=== PATIENT | male | born 1955 | race Caucasian/White ===

== ENCOUNTER 2017-08-04 15:36 | Day surgery (SDC) | payer OTHER ==
[~2017-08-04] VITALS: Ht 180.3 cm; Wt 101.7 kg
[~2017-08-04 15:36] MED LIST: CELEBREX100 MG PO; HYDROCHLOROTHIA25 MG PO; METFORMIN HCL500 MG PO
[2017-08-04 16:04] VITALS: BP 135/83
[2017-08-04 16:09] LABS: HEMATOCRIT 50.3 % (38.0-50.0); HEMOGLOBIN 16.6 G/DL (12.5-16.6); MCH 29.6 PG (29.0-34.0); MCV 89.7 FL (86-99); PLATELET COUNT 320 K/uL (156-360); RBC DIS.WIDTH-CV 12.5 % (11.8-14.6); RED BLOOD COUNT 5.61 M/uL (4.00-5.50)
[2017-08-04 16:39] LABS: ALBUMIN 4.5 G/DL (3.2-4.8); CHLORIDE 101 MEQ/L (99-109); POTASSIUM 4.3 MEQ/L (3.7-5.4); SODIUM 138 MEQ/L (136-147); TOTAL BILIRUBIN 1.4 MG/DL (0.0-1.0)
[2017-08-04 16:45] LABS: ALKALINE PHOSPHATASE 67 IU/L (3-129); ALT (GPT) 23 IU/L (3-49); AST (GOT) 13 IU/L (2-34); GFR ESTIMATE (CALCULATED) > 59 mL/min/ (58.99-99999); GLUCOSE 96 mg/dL (70-99); TOTAL PROTEIN 8.1 G/DL (6.4-8.3); UREA NITROGEN (BUN) 19 mg/dL (9-23)
[2017-08-04 20:10] VITALS: BP 188/81
[2017-08-04 21:08] VITALS: BP 134/89
== END 2017-08-04 21:08 | disposition home or self-care (01) ==
LOC: SDC 15:36
PROVIDERS: Ophthalmology
DX: H33.42 Traction detachment of retina, left eye (principal); I10 Essential (primary) hypertension; E11.9 Type 2 diabetes mellitus without complications; G47.33 Obstructive sleep apnea (adult) (pediatric); Z79.84 Long term (current) use of oral hypoglycemic drugs
CPT/HCPCS: 80053; 82948; 85027; 93005; J0690; J1100; J1120; J1885; J2795; J3300